=== PATIENT | male | born 1985 | race Caucasian/White ===

== ENCOUNTER 2019-11-27 08:12 | Emergency (ER) | payer MEDICAID ==
[~2019-11-27] VITALS: Ht 167.6 cm; Wt 93.2 kg
[2019-11-27] MEDS ORDERED: LIDOcaine 5% patch TP ONE (09:20)
[2019-11-27] MEDS ORDERED: ketorolac trometh. 30mg/ml inj. IM ONE (09:20)
[2019-11-27] MEDS ORDERED: cyclobenzaprine 10mg tablet PO ONE (09:40)
[2019-11-27 11:41] VITALS: BP 125/78
[2019-11-27] MEDS ORDERED: CYCL-1 PO (12:15)
== END 2019-11-27 12:16 | disposition home or self-care (01) ==
LOC: ER 08:13
DX: S33.5XXA Sprain of ligaments of lumbar spine, initial encounter (principal); Z88.2 Allergy status to sulfonamides; W18.39XA Other fall on same level, initial encounter; Y93.89 Activity, other specified; Y92.89 Other specified places as the place of occurrence of the external cause; Y99.8 Other external cause status
CPT/HCPCS: 72100; 72131; 96372; 99284; J1885